=== PATIENT | female | born 1995 | race Hispanic/Latino ===

== ENCOUNTER 2024-08-23 12:47 | Observation (INO) | payer MEDICAID, SELFPAY ==
--- NOTE | 2024-08-23 16:04 | OBADM ---
This patient, Kayleigh Arredondo, admitted to the OB room Labor/Delivery/Recovery 104 for observation. Patient/family oriented to hospital policies and general routines including ID bracelet, bed and alarms, visiting hours, pain management, procedures, bathroom and other care routines, personal items, smoking policy, room service/diet, and visiting hours. Patient/Family are encouraged to report perceived risks to care and to ask questions if they do not understand what they are told or what they should do.
--- NOTE | 2024-08-24 13:05 | PM.OBTRLD ---
OB - Triage/Final Diagnosis Visit Information Comments/Additional reasons for admission: I have assessed the risk for this patient, Kayleigh Arredondo, and determined that she would benefit from observation care. Final Diagnosis (1) Irregular contractions: Code(s): O47.9 - False labor, unspecified Status: Acute
== END 2024-08-23 15:20 | disposition home or self-care (01) ==
PROVIDERS: Admitting Provider Obstetrics & Gynecology; Visit Provider Obstetrics & Gynecology
DX: O47.1 False labor at or after 37 completed weeks of gestation (principal); Z3A.37 37 weeks gestation of pregnancy
CPT/HCPCS: G0378; G0379

== ENCOUNTER 2024-08-23 17:15 | Inpatient (IN) | payer MEDICAID, SELFPAY ==
--- NOTE | 2024-08-23 17:49 | WPDOBADMIT ---
Obstetrics - Admit Note Admission Note: record reviewed. No pertinent additions to the history and/or any subsequent changes in the physical findings that are not consistent with the expected course of the were found. Patient presented in precipitous labor. complicated by late care at 36 weeks. GBS negative. Additions to the history and/or subsequent changes in the physical findings follow. None.
[2024-08-23 17:51] LABS: Basophils Percent Auto 0.4 % (0.2-1.2); Eosinophils Percent Auto 0.1 % (0-4.4); Hematocrit 34.8 % (37.0-47.0); Hemoglobin 11.3 g/dL (12.0-15.0); Immature Granulocyte Absolute 0.04 K/mm3 (0.00-0.031); Immature Granulocyte Percent A 0.4 % (0-0.5); Lymphocytes Absolute Auto 0.96 K/mm3 (0.9-3.2); Lymphocytes Percent Auto 8.6 % (18.3-44.2); Mean Corpuscular HGB Conc 32.5 g/dl (32-36); Mean Corpuscular Hemoglobin 25.2 pg (26-34); Mean Corpuscular Volume 77.7 fl (80-100); Mean Platelet Volume 11.2 fl (7.4-10.4); Monocytes Absolute Auto 0.5 K/mm3 (0.1-0.6); Monocytes Percent Auto 4.3 % (2.6-8.5); Neutrophils Absolute Auto 9.6 K/mm3 (1.3-6.7); Neutrophils Percent Auto 86.2 % (45.5-73.1); Platelet Count Result 297 k/mm3 (150-375); Red Blood Count 4.48 M/mm3 (4.2-5.4); Red Cell Distribution Width 14.1 % (11.5-14.5); White Blood Count 11.1 K/mm3 (4.5-10.0)
--- NOTE | 2024-08-23 17:57 | P.PCNOB_ITS ---
OB - Vaginal Delivery Note Procedure Delivery date: 08/23/24 Events: No Care Delivery augmentation: Rupture of Membranes Delivery monitor: External FHT and External Uterine Route of delivery: Episiotomy description: None Specimen: No Quantitative Blood Loss (ml): 50 Anesthesia type: None Disposition: Floor Complications: No immediate complications Narrative: See H&P and notes for details on patient's admission and labor. She progressed to complete cervical dilation and at the appropriate time began pushing. With adequate expulsive efforts by the mother, the baby's head was delivered without difficulty. Nuchal cord was not present. The baby's right shoulder was anterior and delivered under the pubic symphysis without difficulty. The posterior shoulder and the rest of the baby delivered without difficulty. The umbilical cord was doubly clamped and cut after 45 seconds of delayed cord clamping. Care of the was then assumed by the nursing staff. [employer] Baby Date of : 08/23/24 Gestational Age by Date: 38 gender: Female Weight (pounds): 7 Weight (ounces): 12 presentation: vertex position: Left Occiput Anterior Placenta delivery description: Expressed Cord Vessel Description: 3 Vessels and Delayed Cord Clamping
--- NOTE | 2024-08-23 18:23 | LDADM ---
This patient, Kayleigh Arredondo, was admitted to Labor/Delivery/Recovery 106 on 08/23/24 at 17:15. Plans for labor, pain management and were discussed with patient. Patient/family oriented to hospital policies and general routines including ID bracelet, bed and alarms, visiting hours, pain management, procedures, bathroom and other care routines, personal items, smoking policy, room service/diet and guest tray routines, infant security routines, and visiting hours. Patient/Family are encouraged to report perceived risks to care and to ask questions if they do not understand what they are told or what they should do. See OBIX for further documentation.
[2024-08-23 18:26] LABS: Rapid Plasma Reagin Non-Reactive (NonReactive)
[2024-08-23] MEDS: OXYTOCIN 30 UNITS/NS 500 ML 30 UNITS/500 ML BAG 125 UNITS IV CONT (18:30)
[2024-08-23 18:41] LABS: HIV 1/2 Ab P24 Ag Result Negative (Negative)
--- NOTE | 2024-08-23 20:12 | OBPPTRN ---
Patient transferred to post room #290 via wheelchair. Support person present. Oriented to unit, room, information board, rooming in, admission packet and security measures. Patient verbalizes understanding.
[2024-08-23 20:25] VITALS: BP 124/64; PULSE 65; RESP 18; TEMP 37.1; O2SAT 100
[2024-08-23] MEDS: IBUPROFEN 600 MG TABLET PO (20:40)
[2024-08-24 04:00] VITALS: BP 111/64; PULSE 50; RESP 16; TEMP 36.9; O2SAT 100
[2024-08-24 05:04] LABS: Hematocrit 31.5 % (37.0-47.0); Hemoglobin 10.2 g/dL (12.0-15.0)
[2024-08-24 07:30] VITALS: BP 100/59; PULSE 58; RESP 16; TEMP 36.4; O2SAT 100
[2024-08-24] MEDS: DOCUSATE SODIUM 100 MG CAPSULE PO (09:07)
[2024-08-24] MEDS: MULTIVIT/MIN/PREN/FOL AC/IRON TABLET 1 TAB PO (09:07)
--- NOTE | 2024-08-24 09:55 | PCCCNOTE ---
Consult received for late/minimal care. Met with mother who was holding baby girl in room. Pt. is Georgian speaking only - strata was used to communicate. Mother reported pt. and baby will be living in a home with baby's father and two sisters (ages 11 and 6). Discussed care and mother confirmed she has received monthly care though [facility] and showed letter where she found out she was around 12 weeks. Mother also confirmed [facility] and has a security intern for baby arranged. resource list given. Mother confirmed she has all the needed baby supplies except a car seat. HAVEN Calderon reported no other car seats available at this time, but will discuss with her manager supply chain to obtain one. No cord sampling or other concerns per HAVEN Calderon. Mother and RN did not voice any other concerns or needs at this time besides car seat for at discharge, nursing to follow up.
[2024-08-24 12:16] VITALS: BP 113/65; PULSE 65; RESP 16; TEMP 36.5; O2SAT 100
[2024-08-26 10:38] VITALS: BP 123/68; PULSE 63; RESP 18; TEMP 37.2; O2SAT 100
--- NOTE | 2024-08-29 07:13 | P.DS_ITS ---
DS: Admitting Diagnosis Discharge Date 08/24/24 Admitting Diagnosis active labor DS: Discharge Diagnosis Discharge Diagnosis (1) (spontaneous vaginal delivery): Code(s): O80 - Encounter for full-term uncomplicated delivery Status: Acute OB - DS: Summary OB Procedures : None OB Procedures Intrapartum: Spontaneous Vag Delivery OB Procedures: : None Peripartum Data Episiotomy description: None Time Spent with Patient Time attestation: Total time spent providing and/or coordinating discharge services: Discharge Plan Discharge Attending physician on discharge: Wilmer Rahman Discharging Clinician: Wilmer Rahman Patient Disposition: Home, Self-Care Activity: may shower, as tolerated and pelvic rest Diet: as tolerated Discharge Instructions: Education: Mom and Baby Guide Given to: Mother Follow-Up: Call your delivering provider's office for an appointment to be seen in: 4 Weeks Mom and baby should come to the [facility] for the follow-up appointment. Appointment Date/Time: August 26, 2024 at 10:00 am What to expect at your follow-up visit: Blood Pressure Check Physical Assessment Call [phone] if you are unable to keep your appointment time. BREAST CARE: * Wear a snug supportive bra. * For engorgement discomfort: Bottle Feeding: * May apply ice packs PERINEAL CARE: * Until bleeding stops, use your yris bottle after urinating * Change your pad frequently throughout the day * You may take sitz baths several times a day (fill your bathtub with warm water and soak for 20 minutes.) Do NOT bathe in the water * No tub baths until seen by your physician - You may shower ACTIVITY: * Rest as much as possible. * Do not exercise or lift anything heavier than your baby (such as laundry or other children.) * Avoid stairs or driving as much as possible. * Do not put anything into the vagina. No douching, tampons, or sexual activity until seen by physician. NOTIFY PHYSICIAN IF YOU HAVE ANY QUESTIONS OR IF ANY OF THE FOLLOWING SYMPTOMS OCCUR: * If your vaginal bleeding becomes foul smelling. * If your vaginal bleeding becomes more heavy than a period or if your bleeding changes from pink to bright red. However, you may pass an occasional walnut- sized clot once or twice for the first week . * If you experience a sharp, shooting pain in your calves. * If you discover a hard, reddened area on your breast or if you experience flu- like symptoms. DIET: * Eat regular, well-balanced meals. * Drink plenty of fluids daily. Stand Alone Forms: General Discharge Information Follow-up/Referrals: Wilmer Rahman MD [Physician] - 4 Weeks Discharge Medications: New docusate sodium 100 mg Capsule 100 mg PO BID PRN (Reason: Constipation) Qty: 60 0RF ibuprofen 600 mg Tablet 600 mg PO Q6H PRN (Reason: Cramping) Qty: 30 0RF Continued PNV cmb#95-ferrous fumarate-FA [] 28 mg iron- 800 mcg tablet PO Discontinued metronidazole 500 mg tablet nitrofurantoin monohyd/m-cryst 100 mg capsule Date of admission: 08/23/24 17:15 Primary Care Provider: UNKNOWN,DOCTOR Admitting Provider: Rasheed Ivey Attending physician on admission: Wilmer Rahman Condition: Stable
== END 2024-08-24 18:25 | disposition home or self-care (01) | DRG 560 ==
LOC: ANHLDR 17:43 → ANHOB2 08-24 14:23 → ANHLDR 08-25 08:49 → ANHOB2 08-25 08:49
PROVIDERS: Admitting Provider Obstetrics & Gynecology; Visit Provider Obstetrics & Gynecology
DX: O62.3 Precipitate labor (principal); Z3A.37 37 weeks gestation of pregnancy; Z37.0 Single live birth
CPT/HCPCS: 36415; 85014; 85018; 85025; 86592; 86703; 86850; 86900; 86901; A9270; G0378; G0379; G0432; J2590